=== PATIENT | female | born 1980 | race Caucasian/White ===

== ENCOUNTER 2017-01-13 19:22 | Emergency (ER) | payer MEDICARE, OTHER ==
--- NOTE | ~2017-01-13 | CR72 ---
[facility]. [facility] A Service of [facility] & [facility] RADIOLOGY TEXT RESULTS PATIENT: JUVENTINO MCFADDEN LOCATION: SED : 80 UNIT #: [id number] AGE: [address]: Siomara Bejarano MD SEX: F ORDER DR: [id number] [address] [address] [id number] E MR#: [id number] Acc #: [id number] NAME: JUVENTINO MCFADDEN : 1980 SEX: F STUDY DATE/TIME: 01/13/2017 20:22 UNIT: SED ROOM: STUDY DESCRIPTION: CR Chest Single View Portable Attending Physician: Siomara Bejarano M.D. Ordering Physician: Siomara Bejarano M.D. Primary Care Physician: No Primary Care Physician MEDICAL IMAGING REPORT This report is preliminary unless electronic signature is present. EXAM Frontal chest 01/13/2017 INDICATIONS 36-year-old female with a cough. Asthma exacerbation congestion. Symptom onset a week ago. Short of breath. Heart murmur. TECHNIQUE Frontal chest compared with 01/14/2013 FINDINGS Cardiac silhouette within normal limits. Vascularity is normal. Lungs clear. No effusion or pneumothorax. IMPRESSION 1. Negative frontal chest no change Dictated by... Luis A Soriano M.D. THIS IS AN ELECTRONICALLY VERIFIED REPORT Luis A Soriano M.D. at 01/14/2017 4:14 PM JONAH/garland TD: 01/14/2017 00:29 JOB #: [id number] MEDICAL IMAGING REPORT Page 1 of 1
[~2017-01-13 19:22] MED LIST: ALBUTEROL17 GM INH; DITROPAN X10 MG/BOTT PO; DOXYCYCLINE HY100 M3 PO; FLEXERIL PO; FLEXERIL10 MG PO; HYDROCODON-ACE1 EAC7 PO; LEXAPRO PO; MUCINEX DM ER1 EACH PO; NO MEDICATIONS; NORCO 10-325 TA1 TAB PO; PHENERGAN25 M1 PO; PREDNISONE PO; TESSALON200 MG PO; VICODIN 5/500 T1 TAB PO; ZITHROMAX PO
[2017-01-13] MEDS ORDERED: ALBUTEROL17 GM (19:29)
[2017-01-13] MEDS ORDERED: PREDNISONE (19:29)
== END 2017-01-13 21:40 | disposition home or self-care (01) ==
LOC: SED 19:22
DX: J45.901 Unspecified asthma with (acute) exacerbation (principal); Z88.5 Allergy status to narcotic agent
CPT/HCPCS: 71010; 96374; 99283; J2930

== ENCOUNTER 2017-02-04 00:25 | Emergency (ER) | payer MEDICARE, OTHER ==
[~2017-02-04 00:25] MED LIST changes: +ALBUTEROL17 GM; +PREDNISONE
[2017-02-05] MEDS ORDERED: BACTRIM 400-801 EACH (16:55)
== END 2017-02-04 02:31 | disposition home or self-care (01) ==
LOC: SED 00:25
DX: L02.415 Cutaneous abscess of right lower limb (principal); F17.200 Nicotine dependence, unspecified, uncomplicated; Z88.5 Allergy status to narcotic agent
CPT/HCPCS: 10060; 99282

== ENCOUNTER 2017-02-05 16:51 | Emergency (ER) | payer MEDICARE, OTHER ==
[2017-02-05] MEDS ORDERED: BACTRIM 400-801 EACH (16:55)
== END 2017-02-05 17:37 | disposition home or self-care (01) ==
LOC: SED 16:51
DX: Z48.01 Encounter for change or removal of surgical wound dressing (principal); F17.210 Nicotine dependence, cigarettes, uncomplicated; Z98.51 Tubal ligation status; Z88.5 Allergy status to narcotic agent
CPT/HCPCS: 96372; 99282; J1885